=== PATIENT | male | born 1995 | race African-American/Black ===

== ENCOUNTER 2024-11-25 23:42 | Emergency (ER) | payer OTHER, SELFPAY ==
[2024-11-25 23:44] VITALS: BP 165/51; PULSE 67; RESP 14; TEMP 36.4; O2SAT 100
--- OUTSIDE RECORDS SUMMARY | 2024-11-25 23:45 | XMS_ITS | Clinical Summary ---
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 Gender Identity Not on file Sexual Orientation Not on file Obstetrics History Last Filed Vital Signs Vital Sign Reading Time Taken Comments Blood Pressure 142/83 02/13/2017 8:27 AM AIRCRAFT ENGINE INSTALLER Pulse 58 02/13/2017 8:27 AM AIRCRAFT ENGINE INSTALLER Temperature - - Respiratory Rate - - Oxygen Saturation - - Inhaled Oxygen Concentration - - Weight 80.7 kg (178 lb) 02/13/2017 8:27 AM AIRCRAFT ENGINE INSTALLER Height 185.4 cm (6' 1) 02/13/2017 8:27 AM AIRCRAFT ENGINE INSTALLER Body Mass Index 23.48 02/13/2017 8:27 AM AIRCRAFT ENGINE INSTALLER Plan of Treatment Not on file Insurance [facility] CHO[facility] PLUS [facility] HMO[facility]PPO Address: [facility] [address] [place] [address] Care Teams Scrap Crane Operator Relationship Specialty Start Date End Date Beth Obrien MD [address] [place] [address] [place] [address] PCP - General Family Medicine 02/11/17
--- OUTSIDE RECORDS SUMMARY | 2024-11-25 23:45 | XMS_ITS | Clinical Summary ---
Author Organization [facility] Address [address] [place] [address] Care Team Providers Care Barley Steeper Name Role Phone Unavailable Primary Care Provider Unavailabl e Source Comments [facility],non-owned Affiliates and Associated Physician Practices is amultiple site organization consisting of ambulatory clinics and hospital sitesin [place], [place], [place] and [place]. This disclosure is being madepursuant to the Care Everywhere program and may not contain all information available regarding this patient. 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 Gender Identity Not on file Sexual Orientation Not on file Plan of Treatment Health Maintenance Due Date Last Done Comments HIV SCREENING 10/29/2011 HEPATITIS C SCREENING 10/24/2014 DTAP/TDAP/TD VACCINES (1 - Tdap) 10/29/2015 HEPATITIS B VACCINE (1 of 3 - 19+ 3-dose series) 10/29/2015 HPV VACCINE (1 - 3-dose SCDM series) 10/29/2023 DEPRESSION SCREENING 02/18/2024 COVID-19 VACCINE ( - 2023-2 5 season) 2024 INFLUENZA VACCINE (#1) 2024 ZOSTER VACCINE (1 of 2) 2046 HIB VACCINE Aged Out No longer eligi ble based on patient's age to complete this topic MENINGOCOCCAL (Group B) VACC INE SHARED DECISION-MAKING Aged Out No longer eligibl e based on patient's age to complete this topic MENINGOCOCCAL GROUPS A/C/Y/W VACCINE Aged Out No longer eligible b ased on patient's age to complete this topic PNEUMOCOCCAL VACCINE Aged Out No long er eligible based on patient's age to complete this topic
--- NOTE | 2024-11-26 01:13 | PC.NURSE ---
Pt up to triage desk stating that he is leaving d/t wait times and will come back tomorrow. Pt encouraged to seek medical attention when necessary. Axox4 and ambulatory at this time with no sxs of distress.
--- OUTSIDE RECORDS SUMMARY | 2024-11-26 01:30 | XMS_ITS | Clinical Summary ---
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 Gender Identity Not on file Sexual Orientation Not on file Obstetrics History Last Filed Vital Signs Vital Sign Reading Time Taken Comments Blood Pressure 142/83 02/13/2017 8:27 AM BUSINESS DEVELOPMENT ASSOCIATE Pulse 58 02/13/2017 8:27 AM BUSINESS DEVELOPMENT ASSOCIATE Temperature - - Respiratory Rate - - Oxygen Saturation - - Inhaled Oxygen Concentration - - Weight 80.7 kg (178 lb) 02/13/2017 8:27 AM BUSINESS DEVELOPMENT ASSOCIATE Height 185.4 cm (6' 1) 02/13/2017 8:27 AM BUSINESS DEVELOPMENT ASSOCIATE Body Mass Index 23.48 02/13/2017 8:27 AM BUSINESS DEVELOPMENT ASSOCIATE Plan of Treatment Not on file Insurance [facility] CHOICE PLUS [facility] H[facility]PPO Address: [facility] [address] [place] [address] Care Teams Nuclear Weapons Mechanical Specialist Relationship Specialty Start Date End Date Beth Obrien MD [address] [place] [address] [place] [address] PCP - General Family Medicine 02/11/17
--- OUTSIDE RECORDS SUMMARY | 2024-11-26 01:30 | XMS_ITS | Clinical Summary ---
Author Organization [facility] Address [address] [place] [address] Care Team Providers Care Supervisor Filter Assembly Name Role Phone Unavailable Primary Care Provider Unavailabl e Source Comments [facility],non-owned Affiliates and Associated Physician Practices is amultiple site organization consisting of ambulatory clinics and hospital sitesin [place], [place], [place] and [place]. This disclosure is being madepursuant to the Care Everywhere program and may not contain all information available regarding this patient. 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
--- OUTSIDE RECORDS SUMMARY | 2024-11-26 01:30 | XMS_ITS ---
Author Organization Unknown ENCOUNTERS Encounter Performer Location Date Diagnosis Diagnosis Status Emergency EMERGENCY ROOM PHYSICIAN [place] [id number] [place] [address] [id number] TRI Pre Admit [facility] [address] [place] [address] [id number] TRIAG *Note: Encounters from your own facility or health system may be excluded. Allergies, Adverse Reactions, Alerts Allergen Type Severity Identification Date Medications Name Date Quantity Days Supplied GPI Number
== END 2024-11-26 01:13 | disposition left against medical advice (07) ==
LOC: ANHED 11-26 01:28
DX: R25.3 Fasciculation (principal)
CPT/HCPCS: 99199

== ENCOUNTER 2024-11-26 15:05 | Emergency (ER) | payer OTHER, SELFPAY ==
[2024-11-26 15:17] VITALS: BP 129/66; PULSE 69; RESP 16; TEMP 36.7; O2SAT 100
--- NOTE | 2024-11-26 15:18 | ED_ITS ---
HPI - General Adult General Chief complaint: Extremity Problem,Nontraumatic Stated complaint: MUSCLE SPASMS Time Seen by Provider: 11/26/24 15:06 Source: patient Mode of arrival: ambulatory Limitations: no limitations History of Present Illness HPI narrative: Patient is a 29-year-old male who presents with bilateral calf spasms for the last 2 nights. Denies that they have actually cramped but has a feeling like they are going to. Worked out Friday a note to symptoms that evening but they have not gone away. Patient has not worked out since. 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 Denies any dark urine or decreased output. Denies any chest pain or shortness of breath. Has been drinking Pedialyte, water and Gatorade. Related Data Allergies Allergy/AdvReac Type Severity Reaction Status Date / Time No Known Allergies Allergy Verified 11/26/24 00:10 Review of Systems Review of Systems: All systems reviewed & are unremarkable except as noted in HPI and below Constitutional: Constitutional: Denies body ache(s), Denies chills, Denies fatigue, Denies fever(s), Denies headache(s), Denies malaise and Denies weakness Eyes: Eyes: Denies blurry vision, Denies irritation and Denies loss of vision ENT: Denies otalgia, Denies headache(s), Denies nasal discharge, Denies sinus pain and Denies sore throat Cardiovascular: Cardiovascular: Denies chest pain, Denies irregular heart rhythm and Denies dyspnea Respiratory: Respiratory: Denies dyspnea Gastrointestinal: Gastrointestinal: Denies abdominal pain, Denies melena, Denies hematochezia, Denies diarrhea, Denies nausea and Denies vomiting Musculoskeletal: Musculoskeletal: Denies back pain, Denies myalgias, Denies arthralgias and Reports muscle cramps Integumentary/Breasts: Skin/Breast: Denies pruritus and Denies rash Neurologic: Denies headache(s), Denies loss of vision and Denies weakness Psychiatric: Psychiatric: Reports no additional psychiatric complaints Endocrine: Endocrine: Denies fatigue PMFSH Social History Social History Smoking status: Never smoker Comments At time of signature, agree with nursing past medical, surgical, social and family history. There is no relevant family history pertinent to the presenting complaint. Exam Const: General: cooperative, healthy appearing, comfortable, no acute distress and well nourished Nutritional Appearance: well nourished Orie ntation/consciousness: patient oriented x3 Limitations: no limitations HENMT: Head: normal to inspection, normocephalic and atraumatic Ears: hearing grossly normal bilaterally and external ears normal Face/Nose/Sinus: Normal external nose present, normal facial exam and face symmetric Face and sinus: normal facial exam and face symmetric Mouth: Yes lip normal Eyes: General: appearance normal, both eyes and all related structures Alignment and Position: alignment normal and position normal Periorbital: periorbital findings normal Eyelids: eyelids normal Pupils: Equal, round and reactive pupils present EOM: EOMs intact bilaterally Neck: Neck: normal visual inspection, full ROM and supple Chest: Chest palpation & inspection: normal inspection of the chest Resp: Effort & Inspection: normal respiratory effort and able to speak in complete sentences Auscultation: clear to auscultation bilaterally Cardio: Rate: regular rate Rhythm: regular rhythm Heart sounds: S1 normal heart sound present and S2 normal heart sound present GI: Inspection: normal to inspection Skin: General skin exam: normal color and no rashes or lesions noted Neuro: General: patient oriented x3 and moves all extremities Cranial nerves: Yes Equal, round and reactive pupils present Speech: normal speech Gait exam (Neuro): Normal gait present Motor exam (neuro): 5/5 motor strength present throughout, Normal motor muscle tone present throughout and Motor abnormalities not present Sensory Exam: normal sensation Extrem: General: normal to inspection, full ROM and no edema Right upper extremity: normal to inspection, full ROM and normal capillary refill Left upper extremity: normal to inspection, full ROM and normal capillary refill Right lower extremity: normal to inspection, full ROM and normal capillary refill Left lower extremity: normal to inspection, full ROM and normal capillary refill Psych: Appearance: grossly normal and well kempt Mental Status: mental status grossly normal Speech and movement: Normal speech and movement present Affect: normal affect Attitude: cooperative Thought process: Normal thought process present Course Course Emergency Course: Patient is aware of diagnosis, understands and agrees to treatment plan. Anticipatory guidance given. Patient agrees to follow-up as directed and is aware of reasons to seek care at the emergency department. Portions of this record may have been created with voice recognition software Level of Care: Express Care Visit Vital Signs Vital signs: Vital Signs Temperature 36.7 C 11/26/24 15:17 Pulse Rate 69 11/26/24 15:17 Respiratory Rate 16 11/26/24 15:17 Blood Pressure 129/66 11/26/24 15:17 Pulse Oximetry 100 11/26/24 15:17 Temperature 36.7 C 11/26/24 15:17 Pulse Rate 69 11/26/24 15:17 Respiratory Rate 16 11/26/24 15:17 Blood Pressure 129/66 11/26/24 15:17 Pulse Oximetry 100 11/26/24 15:17 Reviewed Medical Decision Making MDM Narrative Medical decision making narrative: Will provide patient with muscle relaxer. Emphasized the importance of establishing a PCP for routine blood work. Patient states if symptoms worsen he will go to the emergency department. Pt well hydrated appearing, in no respiratory distress, hemodynamically stable. Recommend supportive care. The patient is stable at time of discharge the clinical impression was discussed and the patient was given the opportunity to ask questions, which were addressed as completely as possible given the information available at present. Anticipatory guidance and return to care precautions were discussed and the importance of primary care follow-up was stressed and encouraged. The patient voiced understanding of the plan, indications to return, and the need for follow-up. Exam findings show no acute concerns or changes Patient is appropriate for outpatient treatment and follow-up. Differential Diagnosis Differential Diagnosis: Electrolyte imbalance, dehydration, less likely rhabdomyolysis Vital Signs Vital Signs: Vital Signs Temperature 36.7 C 11/26/24 15:17 Pulse Rate 69 11/26/24 15:17 Respiratory Rate 16 11/26/24 15:17 Blood Pressure 129/66 11/26/24 15:17 Pulse Oximetry 100 11/26/24 15:17 Temperature 36.7 C 11/26/24 15:17 Pulse Rate 69 11/26/24 15:17 Respiratory Rate 16 11/26/24 15:17 Blood Pressure 129/66 11/26/24 15:17 Pulse Oximetry 100 11/26/24 15:17 Reviewed Lab Data Lab results reviewed: Yes I reviewed the patient's lab results. Discharge Plan Discharge Clinical Impression: Muscle spasm of both lower legs Patient Disposition: Home Condition: Stable Instructions: Muscle Spasm (ED) Additional Instructions: Take muscle are relaxers as prescribed. They may make you sleepy so do not drive while taking medicine Elevate above heart For pain, you may take: Tylenol 650-1000mg by mouth every 4-6 hours. Do not exceed 4000mg in 24 hours. Advil (Ibuprofen) 600 mg by mouth every 6 hours. Do not exceed 2400mg in 24 hours. 8 AM: Tylenol 11 AM: Ibuprofen 2 PM: Tylenol 5 PM: Ibuprofen 8 PM: Tylenol 11 PM: Ibuprofen 2 AM: Tylenol 5 AM: Ibuprofen Follow up with your primary care provider if the condition is not improving within 1 week. If the condition worsens with numbness, tingling, decrease sensation with weakness seek treatment in the emergency room immediately. Patient Language: Yakut Prescriptions: New baclofen 10 mg tablet 10 mg PO TID 5 Days Qty: 15 0RF Follow-up/Referrals: Willis Alexander MD [Physician, Family Practice] - 3 Days Referral Note: Establish care Stand Alone Forms: Work/School Release IP Time of Disposition: 15:31
== END 2024-11-26 15:33 | disposition home or self-care (01) ==
PROVIDERS: Emergency Provider Nurse Practitioner Family
DX: M62.831 Muscle spasm of calf (principal)
CPT/HCPCS: 99213; G0463